=== PATIENT | male | born 1990 | race Caucasian/White ===

== ENCOUNTER 2021-11-25 21:12 | Emergency (ER) | payer SELFPAY ==
[~2021-11-25] VITALS: Ht 167.6 cm; Wt 65.0 kg
[2021-11-25 21:20] VITALS: BP 147/88
[2021-11-25] MEDS ORDERED: AMOX-424 MT (21:37)
[2021-11-25] MEDS ORDERED: IBUP-2028 MT (21:37)
[2021-11-25] MEDS ORDERED: IBUPROFEN 400MG TABLET PO ONE (21:45)
[2021-11-25] MEDS ORDERED: AMOXICILLIN/POTASSIUM CLAVULANATE 875/125MG TAB PO ONE (21:45)
[2021-11-25] MEDS ORDERED: TETANUS, DIPHTHERIA, PERTUSSIS VAC/PF 0.5ML (>10YR OLD) IM ONE (21:45)
== END 2021-11-25 22:00 | disposition home or self-care (01) ==
LOC: ER 21:12
DX: S81.012A Laceration without foreign body, left knee, initial encounter (principal); F12.10 Cannabis abuse, uncomplicated; W54.0XXA Bitten by dog, initial encounter; Y93.89 Activity, other specified; Y92.89 Other specified places as the place of occurrence of the external cause; Y99.8 Other external cause status
CPT/HCPCS: 12001; 90715; 99283